=== PATIENT | male | born 1980 | race Caucasian/White ===

== ENCOUNTER 2016-08-13 10:27 | Outpatient (RCR) | payer MEDICAID ==
[~2016-08-13 10:27] MED LIST: ACHD5005 PO; DOXY100C2 PO; IBP800T PO; METO-333 PO; NAPR220C PO; OXC20TCR PO; Oxycodone Hcl PO; POLY17PO23 PO; SENN-20 PO
== END 2016-08-14 | disposition home or self-care (01) ==
PROVIDERS: ATTEND Orthopaedic Surgery
DX: M25.512 Pain in left shoulder (principal); Z98.890 Other specified postprocedural states

== ENCOUNTER 2016-08-24 15:28 | Outpatient (RCR) | payer MEDICAID | END 2016-08-24 16:21 | disposition home or self-care (01) | PROVIDERS: ATTEND Orthopaedic Surgery | DX: M25.512 Pain in left shoulder (principal); Z98.890 Other specified postprocedural states ==

== ENCOUNTER 2020-10-10 15:20 | Emergency (ER) | payer MEDICAID, MEDICARE ==
[~2020-10-10] VITALS: Ht 175.2 cm; Wt 75.0 kg
[~2020-10-10 15:20] MED LIST changes: -POLY17PO23 PO; +POLY17PO54 PO
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
[2020-10-10] MEDS ORDERED: KETOROLAC 60 MG/2 ML VIAL IM ONE (15:45)
--- NOTE | 2020-10-10 15:50 | Diagnostic Imaging Report ---
INDICATION: Fall. TIME OF EXAM: 03:44 p.m. COMPARISON: Correlation is made with prior chest from 04/29/2015. FINDINGS: Postop changes to the left shoulder are noted. There are numerous plates and screws transfixing numerous left-sided ribs. Lungs are clear. No infiltrates are seen. There is no effusion or pneumothorax. IMPRESSION: Postop changes. No acute cardiopulmonary process is detected. Dictated by: Dictated on workstation # [id number]
[2020-10-10 22:49] VITALS: BP 106/81
== END 2020-10-10 22:50 | disposition home or self-care (01) ==
LOC: EDUNIT# 15:20 → ER 15:22
DX: R07.81 Pleurodynia (principal)
CPT/HCPCS: 71045; 96372

== ENCOUNTER 2021-02-14 12:33 | Emergency (ER) | payer MEDICARE, OTHER ==
[~2021-02-14] VITALS: Ht 172.7 cm; Wt 75.0 kg
--- NOTE | 2021-02-14 13:15 | ED Lower Extremity ---
General Chief Complaint: Lower Extremity Stated Complaint: L LEG PAIN Nursing Triage Note: AMB TO ED PER [employer] WAS AT WORK LAST NIGHT AND SLIPPED BETWEEN 2 ROLLERS C/O PAIN IN L LEG. NO BRUSING NOTED. Source: patient Exam Limitations: no limitations (GARRETT FUENTES APRN) History of Present Illness Date Seen by Provider: Feb 14, 2021 Time Seen by Provider: 13:13 Initial Comments Some sort of a roller fell onto his left lateral leg last night while at work. He now has pain over the fibular head on the left. No pain over any part of the tibia or femur. Weightbearing makes the pain worse. He had some transient numbness of the foot but that went away when he started using crutches today. Onset: yesterday Severity: moderate Pain/Injury Location: left leg Method of Injury: direct blow Modifying Factors: Worse With Movement (GARRETT FUENTES APRN) Allergies and Home Medications Allergies Coded Allergies: No Known Drug Allergies (Unverified , 04/21/12) Patient Home Medication List Home Medication List Reviewed: Yes (GARRETT FUENTES APRN) Metoprolol Tartrate (Metoprolol Tartrate) 25 Mg Tablet, 25 MG PO BID Prescribed by: LIAN KENNEDY on 05/26/151936 Oxycodone HCl (Oxycodone HCl ER) 20 Mg Tab.er.12h, 20 MG PO BID Prescribed by: LIAN KENNEDY on 05/26/151936 Polyethylene Glycol 3350 (Polyethylene Glycol 3350) 17 Gm Powd.pack, 17 GM PO HS Prescribed by: LIAN KENNEDY on 05/26/151936 Sennosides/Docusate Sodium (Senna-Time S Tablet) 1 Each Tablet, 1 EA PO BID Prescribed by: LIAN KENNEDY on 05/26/151936 [Oxycodone Hcl] 5 MG TAB, 10 MG PO Q4HR PRN for PAIN Prescribed by: LIAN KENNEDY on 05/26/151936 Review of Systems Constitutional: see HPI EENTM: see HPI Respiratory: no symptoms reported Cardiovascular: no symptoms reported Genitourinary: no symptoms reported Musculoskeletal: see HPI Skin: no symptoms reported Psychiatric/Neurological: No Symptoms Reported (GARRETT FUENTES APRN) Past Ezzcjqt-Okvbuh-Xqtggk Hx Patient Social History Tobacco Use?: Yes Substance use?: No Pt feels they are or have been: No (GARRETT FUENTES APRN) Immunizations Up To Date First/Initial COVID19 Vaccinat: AUGUST Second COVID19 Vaccination Kaveh: SEP COVID19 Vaccine Group Managing Director: KARLOS (GARRETT FUENTES APRN) Past Medical History Orthopedic, Tracheostomy Reproductive Disorders: No Sexually Transmitted Disease: No Arthritis Adverse Reaction/Blood Tranf: No (GARRETT FUENTES APRN) Family Medical History Completed stroke (family history, unknown family member) Diabetes mellitus 19 FATHER FH: liver cancer (family history, unknown family member) FHx: coronary artery disease (family history, unknown family member) Hypertension (family hx, unknown family member) No Pertinent Family Hx (GARRETT FUENTES APRN) Physical Exam Vital Signs Vital Signs - First Documented 02/14/21 12:39 Temp 36.6 Pulse 75 Resp 18 B/P (MAP) 121/70 (87) Pulse Ox 97 O2 Delivery Room Air (MARITZA BANGURA MD) Vital Signs Capillary Refill : Less Than 3 Seconds (GARRETT FUENTES APRN) Height, Weight, BMI Height: 5'10.00" Weight: 173lbs. oz. 78.203904hw; 25.00 BMI Method:Stated General Appearance: WD/WN, no apparent distress Respiratory: no respiratory distress, no accessory muscle use Hips: bilateral hip non-tender, bilateral hip normal inspection, bilateral hip normal range of motion Legs: left leg other (Arrives to ER using his own crutches. Left fibular head tender to palpation. Proximal tibia is nontender to palpation. No tenderness to palpation along the knee joint line. The patella is nontender and the distal femur is nontender. A the skin overlying the area of concern is also unremarkable without ecchymosis or erythema) Knees: bilateral knee non-tender, bilateral knee normal inspection, bilateral knee normal range of motion Ankles: bilateral ankle non-tender, bilateral ankle normal inspection, bilateral ankle normal range of motion Feet: bilateral foot non-tender, bilateral foot normal inspection, bilateral foot normal range of motion Neurologic/Psychiatric: alert, normal mood/affect, oriented x 3 Skin: normal color, warm/dry (GARRETT FUENTES APRN) Progress/Results/Core Measures Results/Orders Vital Signs/I&O 02/14/21 02/14/21 12:39 14:04 Temp 36.6 36.6 Pulse 75 75 Resp 18 18 B/P (MAP) 121/70 (87) 121/70 Pulse Ox 97 97 O2 Delivery Room Air Room Air (MARITZA BANGURA MD) Blood Pressure Mean: 87 Departure Impression Primary Impression: Contusion of fibula Disposition: HOME, SELF-CARE Condition: Stable Departure-Patient Inst. Decision time for Depature: 13:48 (GARRETT FUENTES APRN) Referrals: NO,LOCAL PHYSICIAN (PCP/Family) Primary Care Physician Patient Instructions: Contusion (DC) Add. Discharge Instructions: 1. Tylenol and ibuprofen for pain control. When the pain is tolerable you can stop using the crutches. Return to ER for any concerns follow-up with your doctor later this week for recheck. All discharge instructions reviewed with patient and/or family. Voiced understanding. Work/School Note: Work Release Form Date Seen in the Emergency Department: Feb 14, 2021 Return to Work: Feb 17, 2021 ATTENDING PHYSICIAN NOTE: I was physically present as attending physician in the emergency department during the care of this patient, but I was not directly involved in the decision making or delivery of care for this patient. (MARITZA BANGURA MD) GARRETT FUENTES APRN Feb 14, 2021 13:15 MARITZA BANGURA MD Feb 14, 2021 18:38
--- NOTE | 2021-02-14 13:35 | Diagnostic Imaging Report ---
INDICATION: Left knee injury and pain. TIME OF EXAM: 1:29 p.m. FINDINGS: Three views of the left knee were obtained. There are postop changes to the proximal tibia, lateral side. There is some mild medial compartmental degenerative change with marginal osteophyte formation. No fracture, dislocation, or effusion is seen. IMPRESSION: No acute bony abnormality is detected. Dictated by: Dictated on workstation # [id number]
[2021-02-14 14:04] VITALS: BP 121/70
== END 2021-02-14 14:04 | disposition home or self-care (01) ==
LOC: EDUNIT# 12:33 → ER 12:35
DX: S80.12XA Contusion of left lower leg, initial encounter (principal); W20.8XXA Other cause of strike by thrown, projected or falling object, initial encounter; Y92.59 Other trade areas as the place of occurrence of the external cause; Y99.0 Civilian activity done for income or pay
CPT/HCPCS: 73562; 99281

== ENCOUNTER 2021-09-30 11:32 | Emergency (ER) | payer MEDICARE ==
[~2021-09-30] VITALS: Ht 175.3 cm; Wt 70.3 kg
[2021-09-30 11:38] VITALS: BP 109/68
--- NOTE | 2021-09-30 12:25 | ED Head Injury ---
General Chief Complaint: Laceration Stated Complaint: HEAD LAC Nursing Triage Note: PT AMB TO FT 3 W C/O NECK PAIN AND HEAD LAC D/T FALL AT APPROX 0300 THIS AM. PT DENIES LOC, A&OX4. VARIOUS ABRASIONS NOTED ON PT BODY, PT DENIES ALL OTHER PAIN. Source: patient Exam Limitations: no limitations (VIKKI QUINTERO) History of Present Illness Date Seen by Provider: Sep 30, 2021 Time Seen by Provider: 12:21 Initial Comments Patient presents for a head injury. He tripped and fell on the concrete and struck his head. No LOC. He sustained a laceration to the top of his head and is also having some neck pain. Occurred: just prior to arrival (VIKKI QUINTERO) Allergies and Home Medications Allergies Coded Allergies: No Known Drug Allergies (Unverified , 04/21/12) Patient Home Medication List Home Medication List Reviewed: Yes (VIKKI QUINTERO) Metoprolol Tartrate (Metoprolol Tartrate) 25 Mg Tablet, 25 MG PO BID Prescribed by: LIAN KENNEDY on 05/26/151936 Oxycodone HCl (Oxycodone HCl ER) 20 Mg Tab.er.12h, 20 MG PO BID Prescribed by: LIAN KENNEDY on 05/26/151936 Polyethylene Glycol 3350 (Polyethylene Glycol 3350) 17 Gm Powd.pack, 17 GM PO HS Prescribed by: LIAN KENNEDY on 05/26/151936 Sennosides/Docusate Sodium (Senna-Time S Tablet) 1 Each Tablet, 1 EA PO BID Prescribed by: LIAN KENNEDY on 05/26/151936 [Oxycodone Hcl] 5 MG TAB, 10 MG PO Q4HR PRN for PAIN Prescribed by: LIAN KENNEDY on 05/26/151936 Review of Systems Review of Systems Constitutional: no symptoms reported Eyes: No Symptoms Reported Ears, Nose, Mouth, Throat: no symptoms reported Respiratory: no symptoms reported Cardiovascular: no symptoms reported Musculoskeletal: neck pain, other (laceration to right scalp) Skin: see HPI (VIKKI QUINTERO) Past Ddzbikx-Lcllws-Fcjmzs Hx Patient Social History Tobacco Use?: No Use of E-Cig and/or Vaping dev: Yes E-Cig or Vaping type used: Nicotine Substance use?: No Alcohol Use?: Yes Alcohol Frequency: Once in a while (VIKKI QUINTERO) Immunizations Up To Date First/Initial COVID19 Vaccinat: AUGUST Second COVID19 Vaccination Kaveh: SEP (VIKKI QUINTERO) Past Medical History Orthopedic, Tracheostomy Reproductive Disorders: No Sexually Transmitted Disease: No Arthritis Adverse Reaction/Blood Tranf: No (VIKKI QUINTERO) Family Medical History Completed stroke (family history, unknown family member) Diabetes mellitus 19 FATHER FH: liver cancer (family history, unknown family member) FHx: coronary artery disease (family history, unknown family member) Hypertension (family hx, unknown family member) No Pertinent Family Hx (VIKKI QUINETRO) Physical Exam Vital Signs Vital Signs - First Documented 09/30/21 11:38 Temp 36.8 Pulse 103 Resp 20 B/P (MAP) 109/68 (82) Pulse Ox 97 O2 Delivery Room Air (MARITZA BANGURA MD) Vital Signs Capillary Refill : Less Than 3 Seconds (VIKKI QUINTERO) Height, Weight, BMI Height: 5'10.00" Weight: 173lbs. oz. 78.840971us; 22.00 BMI Method:Stated General Appearance: WD/WN, no apparent distress HEENT: PERRL/EOMI, TMs normal, other (3cm superficial gaping laceration to right scalp. Small surrounding abrasions. No foreign body) Neck: tender midline Cardiovascular: regular rate, rhythm Respiratory: chest non-tender Gastrointestinal: soft Back: normal inspection Extremities: normal range of motion Psychiatric: alert, oriented x 3 Coordination/Gait: normal finger to nose, normal gait Motor/Sensory: no motor deficit Skin: warm/dry (VIKKI QUINTERO) Gustavo Coma Score Best Eye Response: (4) Open Spontaneously Best Verbal Response: (5) Oriented Best Motor Response: (6) Obeys Commands (VIKKI QUINTERO) Procedures/Interventions Wound Location: Scalp Other Wound Location right side of scalp Wound's Depth, Shape: superficial Wound Explored: clean Staple Repair: Stapler 35W Number of Sutures: 3 (VIKKI QUINTERO) Progress/Results/Core Measures Results/Orders Blood Pressure Mean: 82 Departure Communication (Admissions) Wound cleaned and stapled closed at bedside. (VIKKI QUINTERO) Impression Primary Impression: Scalp laceration Additional Impressions: Fall from ground level Closed head injury Disposition: 01 HOME, SELF-CARE Condition: Stable Departure-Patient Inst. Decision time for Depature: 13:12 (VIKKI QUINTERO) [facility]errals: [facility] (PCP/Family) Primary Care Physician Patient Instructions: Closed Head Injury, Wound Care (DC), Laceration Repair With [place] (DC) ATTENDING PHYSICIAN NOTE: I was physically present as attending physician in the emergency department during the care of this patient, but I was not directly involved in the decision making or delivery of care for this patient. (MARITZA BANGURA MD) VIKKI QUINTERO Sep 30, 2021 12:25 MARITZA BANGURA MD Oct 02, 2021 01:01
--- NOTE | 2021-09-30 12:55 | Diagnostic Imaging Report ---
PROCEDURE: CT head and CT cervical spine without contrast. TECHNIQUE: Multiple contiguous axial images were obtained through the brain and cervical spine without the use of intravenous contrast. Sagittal and coronal reformations through the cervical spine were then performed. Auto Exposure Controls were utilized during the CT exam to meet ALARA standards for radiation dose reduction. INDICATION: Neck and head pain. Fall. Head laceration. COMPARISON: 04/30/2015. FINDINGS: CT head: No large acute territorial ischemia, mass, or hemorrhage. No midline shift or mass effect. The ventricles, cortical sulci, and basilar cisterns are patent and unremarkable. The calvarium is intact. The visualized paranasal sinuses are clear. CT cervical spine: No acute fracture or dislocation is seen in the cervical spine. No focal osseous lesions. ACDF changes are visualized at C4-C6. No hardware fracture or loosening is seen. Vertebral body heights are well-maintained. The craniocervical junction is well-maintained. Mild degenerative changes are seen in the cervical spine with disc osteophyte complexes and uncovertebral arthropathy. Soft tissues of the neck are unremarkable. IMPRESSION: 1. No hemorrhage or focal intra-axial mass. No CT evidence of large acute territorial ischemia. 2. No acute fracture or dislocation in the cervical spine. Dictated by: Dictated on workstation # [id number]
== END 2021-09-30 13:20 | disposition home or self-care (01) ==
LOC: EDUNIT# 11:32 → ER 11:35
DX: S09.90XA Unspecified injury of head, initial encounter (principal); S01.01XA Laceration without foreign body of scalp, initial encounter; F17.290 Nicotine dependence, other tobacco product, uncomplicated; W01.198A Fall on same level from slipping, tripping and stumbling with subsequent striking against other object, initial encounter
CPT/HCPCS: 70450; 72125

== ENCOUNTER 2021-10-11 16:40 | Emergency (ER) | payer MEDICARE ==
[2021-10-11 16:53] VITALS: BP 100/65
== END 2021-10-11 16:53 | disposition home or self-care (01) ==
LOC: EDUNIT# 16:40 → ER 16:42
DX: Z48.02 Encounter for removal of sutures (principal)

== ENCOUNTER 2022-01-23 05:02 | Emergency (ER) | payer MEDICARE, MEDICAID ==
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
[2022-01-23] MEDS ORDERED: TETANUS,DIPTH,PERTUSS P/F (BOOSTRIX) 0.5 ML VIAL IM ONE (05:30)
[2022-01-23] MEDS ORDERED: RX-NAPROXEN (NAPROSYN) 250 MG TAB PPK#4 PO STA (05:36)
[2022-01-23] MEDS ORDERED: NAPR500T8 PO (05:40)
[2022-01-23 05:42] VITALS: BP 111/74
--- NOTE | 2022-01-23 06:08 | Diagnostic Imaging Report ---
HISTORY: Pain and swelling in the right hand. TECHNIQUE: 3 views of the right hand COMPARISON: None FINDINGS: There is deformity of the 5th metacarpal with anterior angulation, which appears to be chronic. There is a nondisplaced transverse fracture across the 4th metacarpal neck with mild anterior angulation. There is moderate soft tissue swelling about the right hand. No cortical erosions are seen. There are mild degenerative changes in the carpus. IMPRESSION: 1. Mildly angulated fracture of the right 4th metacarpal neck. 2. Deformity of the 5th metacarpal appears to be chronic, from old trauma. Dictated by: Dictated on workstation # [id number]
== END 2022-01-23 05:44 | disposition home or self-care (01) ==
LOC: EDUNIT# 05:02 → ER 05:05
DX: S60.221A Contusion of right hand, initial encounter (principal); S00.81XA Abrasion of other part of head, initial encounter; F17.210 Nicotine dependence, cigarettes, uncomplicated; Z23 Encounter for immunization; Z28.310 Unvaccinated for COVID-19; W22.09XA Striking against other stationary object, initial encounter
CPT/HCPCS: 29125; 73130; 90715

== ENCOUNTER 2022-03-22 22:09 | Emergency (ER) | payer MEDICARE, MEDICAID ==
[~2022-03-22 22:09] MED LIST changes: +NAPR500T8 PO
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
[2022-03-22 22:54] LABS: BASOPHILS # (AUTO) 0.1 10^3/uL (0.0-0.1); BASOPHILS % (AUTO) 1 % (0-10); EOSINOPHILS # (AUTO) 0.2 10^3/uL (0.0-0.3); EOSINOPHILS % (AUTO) 3 % (0-10); HEMATOCRIT 45 % (40-54); HEMOGLOBIN 15.7 g/dL (13.3-17.7); LYMPHOCYTES % (AUTO) 39 % (12-44); MEAN CORPUSCULAR HEMOGLOBIN 32 pg (25-34); MEAN CORPUSCULAR HGB CONC 35 g/dL (32-36); MEAN CORPUSCULAR VOLUME 93 fL (80-99); MEAN PLATELET VOLUME 9.3 fL (9.0-12.2); MONOCYTES # (AUTO) 0.4 10^3/uL (0.0-1.0); MONOCYTES % (AUTO) 5 % (0-12); NEUTROPHILS # (AUTO) 4.1 10^3/uL (1.8-7.8); NEUTROPHILS % (AUTO) 53 % (42-75); PLATELET COUNT 293 10^3/uL (130-400); WHITE BLOOD COUNT 7.8 10^3/uL (4.3-11.0)
[2022-03-22 23:09] LABS: ALBUMIN 4.5 GM/DL (3.2-4.5); BILIRUBIN,TOTAL 0.3 MG/DL (0.1-1.0); CALCIUM 8.8 MG/DL (8.5-10.1); CREATININE SERUM 0.81 MG/DL (0.60-1.30); POTASSIUM 3.6 MMOL/L (3.6-5.0); TOTAL PROTEIN 7.5 GM/DL (6.4-8.2)
[2022-03-22 23:42] VITALS: BP 112/74
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
== END 2022-03-22 23:54 ==
LOC: EDUNIT# 22:09 → ER 22:10
DX: M79.602 Pain in left arm (principal); F10.229 Alcohol dependence with intoxication, unspecified; F17.210 Nicotine dependence, cigarettes, uncomplicated; Y90.7 Blood alcohol level of 200-239 mg/100 ml; V89.2XXA Person injured in unspecified motor-vehicle accident, traffic, initial encounter; Y92.410 Unspecified street and highway as the place of occurrence of the external cause
CPT/HCPCS: 70450; 71045; 72125; 72170; 73060; 73090; 80053; 82150; 83690; 85025; 93041; 99283; G0480; 36415; 80320